=== PATIENT | male | born 1955 | race Two or more races ===

== ENCOUNTER → 2017-04-07 | Outpatient (REF) | payer OTHER ==
[2017-04-07 13:43] LABS: BASO % 0.4 % (0.0-1.0); EOS # 0.1 K/mm3 (0.0-0.50); EOS % 1.7 % (0.0-3.0); LARGE UNSTAINED CELL # 0.1 K/mm3 (0.0-0.4); LARGE UNSTAINED CELL % 1.3 % (0.0-4.0); LYMPH # 1.8 K/mm3 (1.5-4.5); LYMPH % 24.2 % (24.0-44.0); MEAN CORPUSCULAR HGB CONC 33.5 g/dl (32.0-36.5); MEAN CORPUSCULAR VOLUME 104.6 fl (80.0-96.0); MONO # 0.3 K/mm3 (0.0-0.8); MONO % 4.2 % (0.0-5.0); NEUTROPHILS % 68.2 % (36.0-66.0); PLATELET COUNT, AUTOMATED 242 k/mm3 (150-450); RED CELL DISTRIBUTION WIDTH 12.4 % (11.5-14.5); WHITE BLOOD COUNT 7.4 K/mm3 (4.0-10.0)
[2017-04-07 14:00] LABS: ALBUMIN 3.3 GM/DL (3.2-5.2); ALBUMIN/GLOBULIN RATIO 0.92 (1.00-1.93); ALKALINE PHOSPHATASE 129 U/L (45-117); ALT/SGPT 28 U/L (12-78); ANION GAP 6 MEQ/L (8-16); AST/SGOT 15 U/L (15-37); BILIRUBIN,TOTAL 0.3 MG/DL (0.2-1.0); BLOOD UREA NITROGEN 17 MG/DL (7-18); CALCIUM LEVEL 9.1 MG/DL (8.8-10.2); CARBON DIOXIDE LEVEL 29 MEQ/L (21-32); CHLORIDE LEVEL 106 MEQ/L (98-107); CHOLESTEROL LEVEL 182 MG/DL (<200); CREATININE FOR GFR 0.93 MG/DL (0.70-1.30); GLOMERULAR FILTRATION RATE > 60.0 (>49); GLUCOSE, FASTING 130 MG/DL (80-110); SODIUM LEVEL 141 MEQ/L (136-145); TOTAL PROTEIN 6.9 GM/DL (6.4-8.2); TRIGLYCERIDES LEVEL 61 MG/DL (<150)
[2017-04-07 14:03] LABS: POTASSIUM SERUM 5.2 MEQ/L (3.5-5.1)
== END ==
LOC: M SFHCADAM 08:24
PROVIDERS: ATTEND Family Medicine
DX: K21.9 Gastro-esophageal reflux disease without esophagitis (principal); E66.9 Obesity, unspecified; Z86.39 Personal history of other endocrine, nutritional and metabolic disease

== ENCOUNTER → 2017-05-01 | Outpatient (REF) | payer OTHER ==
[2017-05-01 12:39] LABS: FOLATE 6.8 NG/ML (>5.4)
[2017-05-01 12:41] LABS: FREE T4 1.07 NG/DL (0.76-1.46)
== END ==
LOC: M SFHCADAM 10:41
PROVIDERS: ATTEND Family Medicine
DX: D75.89 Other specified diseases of blood and blood-forming organs (principal); R73.9 Hyperglycemia, unspecified

== ENCOUNTER → 2017-06-01 | Outpatient (CLI) | payer OTHER ==
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
== END ==
LOC: M PAIN 11:20
PROVIDERS: ATTEND Nurse Practitioner Family
DX: G89.29 Other chronic pain (principal); M53.3 Sacrococcygeal disorders, not elsewhere classified; M51.27 Other intervertebral disc displacement, lumbosacral region; J44.9 Chronic obstructive pulmonary disease, unspecified; K21.9 Gastro-esophageal reflux disease without esophagitis; Z79.899 Other long term (current) drug therapy; Z87.891 Personal history of nicotine dependence

== ENCOUNTER → 2017-08-01 | Outpatient (CLI) | payer OTHER ==
[~2017-08-01] MED LIST: BUPIVACAINE HCL 0.25% 30 ML VIAL As Ordered ONE; ISOVUE-M 300 61% 15ML VIAL (Q9967) As Ordered ONE; LIDOCAINE 1% SDV INJ 30 ML VIAL As Ordered ONE; TRIAMCINOLONE ACETONIDE SUSP 40 MG/ML VIAL (J3301) As Ordered ONE
--- NOTE | 2017-08-02 01:31 | ECWPNPC ---
PATIENT NAME: KATHARINA VILLAVICENCIO : 1955 GENDER: MALE VISIT DATE: 08/01/2017 DISCHARGE DATE: 08/01/17 1137 VISIT LOCKED DATE TIME: PHYSICIAN: DAISY ESCOBAR RESOURCE: DAISY ESCOBAR REASON FOR APPOINTMENT 1. SIJ HISTORY OF PRESENT ILLNESS HISTORY OF PRESENT ILLNESS: PAIN THE PATIENT DESCRIBES THE PAIN... FALL RISK SCREENING: SCREENING :NO FALLS IN THE PAST YEAR CURRENT MEDICATIONS TAKING LIDOCAINE 5 % PATCH EXTERNALLY NEEDED, NOTES: > 2 MONTHS TAKING ALBUTEROL SULFATE 108 (90 BASE) MCG/ACT AEROSOL POWDER BREATH ACTIVATED 1 PUFF NEEDED INHALATION EVERY 4 HRS, NOTES: > 1 WEEK TAKING MAGNESIUM 500 MG TABLET 2 TABLET WITH A MEAL ORALLY ONCE A DAY, NOTES: 07/31/17799 TAKING OMEGA 3 1200 MG CAPSULE 1 CAPSULE ORALLY ONCE A DAY, NOTES: 07/31/27799 TAKING D3 ADULT 1000 UNIT TABLET CHEWABLE 1 TABLET ORALLY ONCE A DAY, NOTES: 07/31/27799 TAKING ADVAIR HFA 45-21 MCG/ACT AEROSOL 2 PUFFS INHALATION TWICE A DAY, NOTES: 08/01/27799 TAKING PROTONIX 40 MG TABLET DELAYED RELEASE 1 TABLET ORALLY ONCE A DAY, NOTES: 07/31/17799 TAKING LORATADINE 10 MG TABLET 1 TABLET ORALLY ONCE A DAY, NOTES: 07/31/17799 TAKING POTASSIUM 99 MG TABLET 1 TABLET ORALLY ONCE A DAY, NOTES: 07/31/17799 TAKING LECITHIN - GRANULES ORALLY , NOTES: 07/31/27799 TAKING CO Q 10 100 MG CAPSULE 1 CAPSULE WITH A MEAL ORALLY ONCE A DAY, NOTES: 07/31/17799 TAKING GABAPENTIN 400 MG CAPSULE 1 CAPSULE ORALLY THREE TIMES A DAY, NOTES: 08/01/17799 TAKING HYDROCODONE-ACETAMINOPHEN 5-325 MG TABLET 1 TABLET ORALLY 3 TIMES A DAY NEEDED, NOTES: 08/01/17799 MEDICATION LIST REVIEWED AND RECONCILED WITH THE PATIENT PAST MEDICAL HISTORY COPD GERD DEGENERATIVE DISC DISEASE AND SPINAL STENOSIS, S/P CHIROPRACTIC MANIPULATION, LUMBAR FACET BLOCKS, RADIOFREQUENCY ABLATION, EPIDURAL INJECTION ALLERGIES N.K.D.A. REVIEW OF SYSTEMS REVIEWED BY: PROVIDER: . CONSTITUTIONAL: ANY CHANGE IN YOUR MEDICAL CONDITION? NO . CHILLS NO . FEVER NO . INFECTION: DO YOU HAVE NEW INFECTIONS? NO . DO YOU HAVE HISTORY OF MRSA? NO . MUSCULOSKELETAL: ANY NEW PATTERNS OF PAIN OR NUMBNESS? NO . GASTROENTEROLOGY: ANY NEW CHANGE IN BOWEL CONTROL? NO . GENITOURINARY: ANY NEW CHANGE IN BLADDER CONTROL? NO . IS THERE A CHANCE YOU COULD BE ? NO . HEMATOLOGY/LYMPH: DO YOU TAKE ANY BLOOD THINNERS? (FOR EXAMPLE- COUMADIN, PLAVIX, AGGRENOX, PLATEL, PRADAXA, OR XARELTO) NO . WHEN WAS YOUR LAST DOSE? DATE: TIME: . NEUROLOGY: HAVE YOU FALLEN IN THE PAST 6 MONTHS? NO . ANY NEW EXTREMITY NUMBNESS OR WEAKNESS? NO . CARDIOLOGY: DO YOU HAVE A PACEMAKER OR DEFIBRILLATOR? NO . RESPIRATORY: HAVE YOU BEEN SICK IN THE PAST WEEK? NO . FEVER NO . FLU LIKE SYMPTOMS? NO . COUGH NO . INTEGUMENTARY: DO YOU HAVE ANY RASHES OR OPEN SORES? NO . ALLERGIC/IMMUNO: ARE YOU ALLERGIC TO SHELLFISH OR IV DYE? NO . ANY NEW ALLERGIES? NO . PSYCHIATRIC: DO YOU HAVE THOUGHTS OF HURTING YOURSELF OR SOMEONE ELSE? NO . ARE YOU ABUSED, NEGLECTED, OR IN AN UNSAFE ENVIRONMENT? NO . ENDOCRINOLOGY: ARE YOU DIABETIC? NO . OTHER: DO YOU NEED ANY PRESCRIPTIONS? YES . IF YES, PLEASE LIST: ____HYDROCODONE 5/325 . ANY NEW PROBLEMS WITH YOUR MEDICATIONS? NO . WHEN DID YOU LAST EAT? ____07/31/17 2100 . WHEN DID YOU LAST DRINK? ____08/01/17 0600 . WHAT DID YOU LAST DRINK? ____CLEAR TEA . NAME OF PERSON DRIVING YOU HOME? ____ANA MARIA VILLAVICENCIO . DO YOU HAVE ANY OTHER QUESTIONS OR CONCERNS NO . VITAL SIGNS WT 186 LBS, HT 5'7", BMI 29.13 INDEX, BP 97/54 MM HG, HR 74 /MIN, RR 18 /MIN, TEMP 98.5 F, OXYGEN SAT % 96%, NA INITIALS SC 10:04. ASSESSMENTS SACROILIITIS, NOT ELSEWHERE CLASSIFIED - M46.1 (PRIMARY) PROCEDURES PN SI PRE PROCEDURE DIAGNOSIS SACROILIITIS, SACROILIAC JOINT DYSFUNCTION POST PROCEDURE DIAGNOSIS SACROILIITIS, SACROILIAC JOINT DYSFUNCTION PROCEDURE RIGHT SACROILIAC JOINT BLOCK SURGEON DR. DAISY ESCOBAR INTERMEDIATE SCHOOL TEACHER NONE ANESTHESIA LOCAL PRE PROCEDURE NOTE PATIENT WITH HISTORY OF CHRONIC LOW BACK PAIN. I EVALUATED THE PATIENT AND REVIEWED THE CHART. I WENT OVER THE RISKS, ALTERNATIVES, AND BENEFITS ASSOCIATED WITH THIS PROCEDURE. THE PATIENT WOULD LIKE TO PROCEED AND GAVE CONSENT TO PERFORM THE PROCEDURE. THE PATIENT DENIES UNEXPLAINABLE WEIGHT LOSS, FEVER, CHILLS, OR NEW CHANGES IN URINARY OR BOWEL CONTROL DESCRIPTION OF PROCEDURE THE PATIENT WAS BROUGHT TO THE PROCEDURE ROOM AND PLACED IN THE PRONE POSITION. THE LUMBOSACRAL AREA WAS CLEANED WITH CHLORAPREP SOLUTION AND DRAPED ASEPTICALLY. THE PROCEDURE WAS DONE UNDER STERILE CONDITIONS. I CHECKED LATERALITY AND THE LEVEL WHERE THE PROCEDURE WAS GOING TO BE PERFORMED WITH THE PATIENT AND THE SUPPORTING STAFF AT THE MOMENT OF THE TIME OUT IN THE PROCEDURE ROOM. UNDER FLUOROSCOPIC GUIDANCE, TARGET POINT WAS SELECTED AT THE LOWER BORDER OF THE RIGHT SACROILIAC JOINT. TARGET POINT WAS SELECTED AFTER MEDIAL ROTATION AND TILT OF THE MAGNIFIER OF THE C-ARM. LIDOCAINE WAS USED TO NUMB THE SKIN AND SUBCUTANEOUS TISSUE BELOW IT. A SPINAL NEEDLE, 22-GAUGE, WAS ADVANCED UNDER FLUOROSCOPIC GUIDANCE AND FOLLOWING PATIENT FEEDBACK UNTIL THE TARGET AREA WAS TOUCHED. THE POSITION OF THE NEEDLE WAS VERIFIED WITH AP AND LATERAL VIEWS. AFTER PROPER POSITION OF THE NEEDLE WAS ACHIEVED, ISOVUE M DYE 30%, 0.25 ML, WAS INJECTED SHOWING SPREAD OF THE DYE. THEN, A SOLUTION OF 20 MG OF KENALOG WAS INJECTED IN RIGHT JOINT WITH 3 ML OF BUPIVACAINE 0.125%. THERE WAS NO EVIDENCE OF BLOOD, PARESTHESIA OR CEREBROSPINAL FLUID DURING THE PROCEDURE. THE PATIENT WAS SENT TO THE RECOVERY ROOM. THE PATIENT WAS MOVING THE EXTREMITIES AND DOING WELL. THERE WAS NO COMPLICATION DURING THE PROCEDURE. FLUOROSCOPY TIME WAS 22 SECONDS POST PROCEDURE NOTE THE PATIENT WILL BE SEEN IN A FOLLOW UP IN THE NEXT FEW WEEKS. INSTRUCTIONS WERE GIVEN, QUESTIONS WERE ANSWERED, AND THE PATIENT EXPRESSED UNDERSTANDING AND AGREED WITH THE PLAN. I, JOCE GASTON, DOCUMENTED THE ABOVE INFORMATION ACTING A SCRIBE FOR DR. ESCOBAR. I HAVE REVIEWED THE ABOVE DOCUMENT, WRITTEN BY JOCE STRINGER AND I VERIFY THAT IT IS [facility]NO[facility] FLUORO GUIDANCE (PAIN)[id number] PROCEDURE CODES 27182 INJECT SACROILIAC JOINT, MODIFIERS: RT 6045F RADXPS IN END [id number] PXD DISPOSITION & COMMUNICATION FOLLOW UP 3 WEEKS ELECTRONICALLY SIGNED BY DAISY ESCOBAR MD ON 08/01/2017 AT 10:01 PM EDT DISCLAIMER : THIS IS A VISIT SUMMARY EXTRACTED FROM THE [facility] CHART. IT IS NOT A COPY OF THE [facility] PROGRESS NOTE. BRANDON
--- NOTE | 2017-08-02 17:59 | REP ---
RIGHT SI JOINT INJECTION: All imaging was reviewed with Dr. Cota prior to dictation. The portable C-ARM was provided in the OR for Dr. Abdul for fluoroscopic guidance. 3 intraoperative fluoroscopic spot films were obtained using last image hold technology for needle placement verification for right SI joint injection. The films are on the PACs system and are available for review. 22 seconds of fluoroscopy time were utilized for this procedure. Reviewed by CRISTIAN Dimas 08/03/2017 08:22 AEdited and Signed by Milan Cota MD 08/03/2017 07:59 P
== END ==
LOC: M PAIN 10:00
PROVIDERS: ATTEND Anesthesiology
DX: G89.29 Other chronic pain (principal); M46.1 Sacroiliitis, not elsewhere classified; M54.5 Low back pain; J44.9 Chronic obstructive pulmonary disease, unspecified; Z79.891 Long term (current) use of opiate analgesic; Z79.899 Other long term (current) drug therapy; Z86.39 Personal history of other endocrine, nutritional and metabolic disease
CPT/HCPCS: 27096; J3301; Q9967

== ENCOUNTER → 2017-08-15 | Outpatient (CLI) | payer OTHER ==
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
== END ==
LOC: M PAIN 09:15
PROVIDERS: ATTEND Nurse Practitioner Family
DX: G89.29 Other chronic pain (principal); M47.816 Spondylosis without myelopathy or radiculopathy, lumbar region; M48.061 Spinal stenosis, lumbar region without neurogenic claudication; J44.9 Chronic obstructive pulmonary disease, unspecified; K21.9 Gastro-esophageal reflux disease without esophagitis; E66.9 Obesity, unspecified; Z68.28 Body mass index [BMI] 28.0-28.9, adult; Z79.899 Other long term (current) drug therapy; Z87.891 Personal history of nicotine dependence

== ENCOUNTER → 2017-09-06 | Outpatient (CLI) | payer OTHER ==
--- NOTE | 2017-09-24 23:55 | ECWPNPC ---
PATIENT NAME: KATHARINA VILLAVICENCIO : 1955 GENDER: MALE VISIT DATE: 09/06/2017 DISCHARGE DATE: 09/06/17 1625 VISIT LOCKED DATE TIME: PHYSICIAN: DAISY ESCOBAR RESOURCE: DAISY ESCOBAR REASON FOR APPOINTMENT 1. LOW BACK PAIN HISTORY OF PRESENT ILLNESS GENERAL: 62 YEAR OLD MALE PATIENT WITH HISTORY OF CHRONIC LOW BACK PAIN. PATIENT DESCRIBES THE PAIN ACHING, SHARP, STABBING, SHOOTING AND HAVING IT ALL THE TIME WITH A PAIN SCORE OF 4-5/10. PATIENT RECEIVED A LUMBAR FACET BLOCK DIAGNOSTIC #1 ON 09/04/17 AND STATES HE DID NOT GET GOOD RELIEF FROM THE INJECTION. PATIENT IS CURRENTLY USING LIDOCAINE, GABAPENTIN, AND HYDROCODONE FOR PAIN MANAGEMENT. MR. VILLAVICENCIO STATES THAT THE MEDICATION TAKES THE EDGE OFF. PATIENT STATES THAT ANY TYPE OF ACTIVITY INCREASES IN THE PAIN IN HIS LOWER BACK AND LEG INCLUDING WALKING, STANDING, AND SITTING. PATIENT REPORTS ONLY SLEEPING FOR A FEW HOURS AT ONE TIME. PATIENT DENIES UNEXPLAINABLE WEIGHT LOSS, FEVER, CHILLS, NEW CHANGES ON HIS URINARY OR BOWEL CONTROL. HISTORY OF PRESENT ILLNESS: PAIN THE PATIENT DESCRIBES THE PAIN... FALL RISK SCREENING: SCREENING :NO FALLS IN THE PAST YEAR CURRENT MEDICATIONS TAKING LIDOCAINE 5 % PATCH EXTERNALLY NEEDED, NOTES: NOT IN A WHILE TAKING ALBUTEROL SULFATE 108 (90 BASE) MCG/ACT AEROSOL POWDER BREATH ACTIVATED 1 PUFF NEEDED INHALATION EVERY 4 HRS TAKING MAGNESIUM 500 MG TABLET 2 TABLET WITH A MEAL ORALLY ONCE A DAY TAKING OMEGA 3 1200 MG CAPSULE 1 CAPSULE ORALLY ONCE A DAY TAKING D3 ADULT 1000 UNIT TABLET CHEWABLE 1 TABLET ORALLY EVERY OTHER DAY TAKING ADVAIR HFA 45-21 MCG/ACT AEROSOL 2 PUFFS INHALATION TWICE A DAY TAKING PROTONIX 40 MG TABLET DELAYED RELEASE 1 TABLET ORALLY ONCE A DAY TAKING LORATADINE 10 MG TABLET 1 TABLET ORALLY ONCE A DAY TAKING POTASSIUM 99 MG TABLET 1 TABLET ORALLY ONCE A DAY TAKING LECITHIN - GRANULES ORALLY DAILY NEEDED TAKING CO Q 10 100 MG CAPSULE 1 CAPSULE WITH A MEAL ORALLY ONCE A DAY TAKING GABAPENTIN 400 MG CAPSULE 1 CAPSULE ORALLY THREE TIMES A DAY TAKING HYDROCODONE-ACETAMINOPHEN 5-325 MG TABLET 1 TABLET ORALLY 3 TIMES A DAY NEEDED PAST MEDICAL HISTORY COPD GERD DEGENERATIVE DISC DISEASE AND SPINAL STENOSIS, S/P CHIROPRACTIC MANIPULATION, LUMBAR FACET BLOCKS, RADIOFREQUENCY ABLATION, EPIDURAL INJECTION ALLERGIES NO[ALLERGIES VERIFIED] SURGICAL HISTORY HERNIA CYST REMOVED RIGHT SHOULDER HEMORRHOIDS FAMILY HISTORY FATHER: 60 YRS, DIAGNOSED WITH CANCER MOTHER: 70 YRS, DIAGNOSED WITH DIABETES 6 BROTHER(S) . 2 SON(S) . SOCIAL HISTORY GENERAL: TOBACCO USE ARE YOU A:FORMER SMOKER HOW LONG HAS IT BEEN SINCE YOU LAST SMOKED?> 10 YEARS ALCOHOL SCREENING DID YOU HAVE A DRINK CONTAINING ALCOHOL IN THE PAST YEAR?YES HOW MANY DRINKS DID YOU HAVE ON A TYPICAL DAY WHEN YOU WERE DRINKING IN THE PAST YEAR?1 OR 2 (0 POINTS) HOW OFTEN DID YOU HAVE A DRINK CONTAINING ALCOHOL IN THE PAST YEAR?MONTHLY OR LESS (1 POINT) POINTS1 INTERPRETATIONNEGATIVE RECREATIONAL DRUG USE DRUG USE?NO CAFFEINE CAFFEINE USE?NO OCCUPATION: DISABLED, SELF-IMPLOYED ([employer], [employer], [employer]). DIET: REGULAR. MARITAL STATUS: . OTHERS AT HOME: . PETS: 3 CHIHUAHUAS, PAIZ PARROT. ISLAM NO YAZIDISM BELIEFS THAT WOULD IMPACT HEALTH CARE. LANGUAGE LANGUAGES SPOKEN:IRAQI LEARNING BARRIERS / SPECIAL NEEDS CHANGE FROM LAST VISIT?NO BARRIERS TO LEARNING?NO HEARING IMPAIRED?YES BILATERAL :HEARING AIDES VISION IMPAIRED?YES :CORRECTIVE LENSES COGNITIVELY IMPAIRED?NO READINESS TO LEARN?YES LEARNING PREFERENCES?NO LEARNING CAPABILITIES PRESENT?YES EMOTIONAL BARRIERS?NO SPECIAL DEVICES?YES :CANE PAVING RAMMER NEEDED?NO PAIN CLINIC PFS, CLERGY, PUBLIC HEALTH REFERRALS PFS REFERRAL NEEDED?NO CLERGY REFERRAL NEEDED?NO PUBLIC HEALTH REFERRAL NEEDED?NO HAS THE PATIENT BEEN EDUCATED REGARDING HIS/HER PLAN OF CARE?YES HAS THE PATIENT BEEN EDUCATED REGARDING PAIN, THE RISK FOR PAIN, THE IMPORTANCE OF EFFECTIVE PAIN MANAGEMENT, AND THE PAIN ASSESSMENT PROCESS?YES ADVANCE DIRECTIVES HEALTH CARE PROXY?NO WOULD YOU LIKE MORE INFORMATION?NO DO YOU HAVE A DNR?NO WOULD YOU LIKE MORE INFORMATION?NO LIVING WILL?NO WOULD YOU LIKE MORE INFORMATION?NO POWER OF COMMERCIAL ILLUSTRATOR?NO WOULD YOU LIKE MORE INFORMATION?NO REVIEW OF SYSTEMS REVIEWED BY: PROVIDER: . CONSTITUTIONAL: ANY CHANGE IN YOUR MEDICAL CONDITION? NO . CHILLS NO . FEVER NO . INFECTION: DO YOU HAVE NEW INFECTIONS? NO . DO YOU HAVE HISTORY OF MRSA? NO . MUSCULOSKELETAL: ANY NEW PATTERNS OF PAIN OR NUMBNESS? YES,RIGHT LEG AND LEFT LOW BACK . GASTROENTEROLOGY: ANY NEW CHANGE IN BOWEL CONTROL? NO . GENITOURINARY: ANY NEW CHANGE IN BLADDER CONTROL? NO . IS THERE A CHANCE YOU COULD BE ? NO . HEMATOLOGY/LYMPH: DO YOU TAKE ANY BLOOD THINNERS? (FOR EXAMPLE- COUMADIN, PLAVIX, AGGRENOX, PLATEL, PRADAXA, OR XARELTO) NO . WHEN WAS YOUR LAST DOSE? DATE: TIME: . NEUROLOGY: HAVE YOU FALLEN IN THE PAST 6 MONTHS? NO . ANY NEW EXTREMITY NUMBNESS OR WEAKNESS? NO . CARDIOLOGY: DO YOU HAVE A PACEMAKER OR DEFIBRILLATOR? NO . RESPIRATORY: HAVE YOU BEEN SICK IN THE PAST WEEK? NO . FEVER NO . FLU LIKE SYMPTOMS? NO . COUGH NO . INTEGUMENTARY: DO YOU HAVE ANY RASHES OR OPEN SORES? NO . ALLERGIC/IMMUNO: ARE YOU ALLERGIC TO SHELLFISH OR IV DYE? NO . ANY NEW ALLERGIES? NO . PSYCHIATRIC: DO YOU HAVE THOUGHTS OF HURTING YOURSELF OR SOMEONE ELSE? NO . ARE YOU ABUSED, NEGLECTED, OR IN AN UNSAFE ENVIRONMENT? NO . ENDOCRINOLOGY: ARE YOU DIABETIC? NO . OTHER: DO YOU NEED ANY PRESCRIPTIONS? YES . IF YES, PLEASE LIST: GABAPENTIN, HYDROCODONE . ANY NEW PROBLEMS WITH YOUR MEDICATIONS? NO . WHEN DID YOU LAST EAT? ____ . WHEN DID YOU LAST DRINK? ____ . WHAT DID YOU LAST DRINK? ____ . NAME OF PERSON DRIVING YOU HOME? ____ . DO YOU HAVE ANY OTHER QUESTIONS OR CONCERNS NO . VITAL SIGNS WT 183.5 LBS, HT 5'7", BMI 28.74 INDEX, BP 150/94 MM HG, HR 90 /MIN, RR 18 /MIN, TEMP 98.1 F, OXYGEN SAT % 96%, NA INITIALS TL 1539, REVIEWED BY: NL. EXAMINATION GENERAL: PATIENT IS ALERT O X 3 AND COOPERATIVE. TENDERNESS IN THE LOWER BACK AND PARASPINAL MUSCLE GROUP. PATIENT LIMPS FROM THE RIGHT LEG. USES CANE TO AMBULATE. STRAIGHT LEG POSITIVE FOR PAIN AT RIGHT LEG AT 30 DEGREES. MRI OF THE LUMBAR SPINE DONE ON 12/18/2015 SHOWS CANAL STENOSIS WELL MULTIPLE DISC BULGES. ASSESSMENTS INTERVERTEBRAL DISC DISORDER WITH RADICULOPATHY OF LUMBAR REGION - M51.16 (PRIMARY) SPONDYLOSIS OF LUMBAR REGION WITHOUT MYELOPATHY OR RADICULOPATHY - M47.816 SPONDYLOSIS OF LUMBOSACRAL REGION WITHOUT MYELOPATHY OR RADICULOPATHY - M47.817 TREATMENT INTERVERTEBRAL DISC DISORDER WITH RADICULOPATHY OF LUMBAR REGION NOTES: WE DISCUSSED SEVERAL ISSUES WITH MR. VILLAVICENCIO'S PAIN MANAGEMENT CASE. AT THIS TIME THE PATIENT WILL CONTINUE WITH THE SAME MEDICATION BEFORE AND WILL START USING TIZANIDINE AT NIGHT TO AID IN PAIN RELIEF FROM THE MUSCLE SPASMS. PATIENT WAS ADVISED TO STOP THE MEDICATION IF HE HAS ANY ADVERSE SIDE EFFECTS FROM THE MEDICATION. WE DISCUSSED SEVERAL INTERVENTIONS THAT MAY AID THE PATIENT IN PAIN RELIEF INCLUDING A LUMBAR EPIDURAL DUE TO THE RADICULAR PAIN. WE DISCUSSED THE RISKS, BENEFITS, AND ALTERNATIVES OF THE INJECTION AND THE PATIENT WOULD LIKE TO PROCEED. INSTRUCTIONS WERE GIVEN, QUESTIONS WERE ANSWERED, PATIENT REPORTS UNDERSTANDING AND AGREES WITH THE PLAN. I, JOCE GASTON, DOCUMENTED THE ABOVE INFORMATION ACTING A SCRIBE FOR DR. ESCOBAR. I HAVE REVIEWED THE ABOVE DOCUMENT, WRITTEN BY JOCE STRINGER AND I VERIFY THAT IT IS ACCURATE. OTHERS START TIZANIDINE HCL TABLET, 2 MG, 1 TABLET NEEDED, ORALLY, BEFORE BEDTIME MAY REPEAT IN 5 HRS MDD2, 30 DAY(S), 50, REFILLS 1 PROCEDURE CODES FA211 ESTABILISHED PATIENT [facility] CHARGE G8427 DOC MEDS VERIFIED W/PT OR RE G8730 PAIN ASSESS POS TOOL F/U PLAN DOC DISPOSITION & COMMUNICATION FOLLOW UP LESI AFTER APPROVAL ELECTRONICALLY SIGNED BY DAISY ESCOBAR MD ON 09/24/2017 AT 08:48 PM EST DISCLAIMER : THIS IS A VISIT SUMMARY EXTRACTED FROM THE [employer] CHART. IT IS NOT A COPY OF THE [employer] PROGRESS NOTE. MTDD
== END ==
LOC: M PAIN 15:45
PROVIDERS: ATTEND Anesthesiology
DX: G89.21 Chronic pain due to trauma (principal); M51.16 Intervertebral disc disorders with radiculopathy, lumbar region; M47.816 Spondylosis without myelopathy or radiculopathy, lumbar region; M47.817 Spondylosis without myelopathy or radiculopathy, lumbosacral region; J44.9 Chronic obstructive pulmonary disease, unspecified; K21.9 Gastro-esophageal reflux disease without esophagitis; Z79.899 Other long term (current) drug therapy; Z87.891 Personal history of nicotine dependence

== ENCOUNTER → 2017-09-18 | Outpatient (CLI) | payer OTHER ==
[~2017-09-18] MED LIST changes: -BUPIVACAINE HCL 0.25% 30 ML VIAL As Ordered ONE; -TRIAMCINOLONE ACETONIDE SUSP 40 MG/ML VIAL (J3301) As Ordered ONE; +diazePAM 5 MG TAB As Ordered ONE; +methylPREDNISolone SUSP 40 MG/ML (DEPO-medrol) VIAL (J1030) As Ordered ONE; +oxyCODONE 5MG TAB As Ordered ONE
--- NOTE | 2017-09-18 17:37 | REP ---
C-Arm views lumbar spine: Clinical history: Pain. Three C-Arm views lumbar spine region performed during injection by Dr. Mcnair. Needle is seen in the L2-3 region. A tiny amount of contrast is injected. 19 seconds of fluoroscopy time utilized. Signed by Milan Cota MD 09/19/2017 01:22 P
--- NOTE | 2017-10-03 00:43 | ECWPNPC ---
PATIENT NAME: KATHARINA VILLAVICENCIO : 1955 GENDER: MALE VISIT DATE: 09/18/2017 DISCHARGE DATE: 09/18/17 1343 VISIT LOCKED DATE TIME: PHYSICIAN: DAISY ESCOBAR RESOURCE: DAISY ESCOBAR REASON FOR APPOINTMENT 1. LESI HISTORY OF PRESENT ILLNESS HISTORY OF PRESENT ILLNESS: PAIN THE PATIENT DESCRIBES THE PAIN... FALL RISK SCREENING: SCREENING :NO FALLS IN THE PAST YEAR CURRENT MEDICATIONS TAKING LIDOCAINE 5 % PATCH EXTERNALLY NEEDED, NOTES: NOT IN A WHILE TAKING ALBUTEROL SULFATE 108 (90 BASE) MCG/ACT AEROSOL POWDER BREATH ACTIVATED 1 PUFF NEEDED INHALATION EVERY 4 HRS, NOTES: > 1 WEEK TAKING MAGNESIUM 500 MG TABLET 2 TABLET WITH A MEAL ORALLY ONCE A DAY, NOTES: 09/17/17799 TAKING OMEGA 3 1200 MG CAPSULE 1 CAPSULE ORALLY ONCE A DAY, NOTES: 09/17/17799 TAKING D3 ADULT 1000 UNIT TABLET CHEWABLE 1 TABLET ORALLY EVERY OTHER DAY, NOTES: 09/17/17799 TAKING ADVAIR HFA 45-21 MCG/ACT AEROSOL 2 PUFFS INHALATION TWICE A DAY, NOTES: 09/18/17799 TAKING PROTONIX 40 MG TABLET DELAYED RELEASE 1 TABLET ORALLY ONCE A DAY, NOTES: 09/17/17799 TAKING LORATADINE 10 MG TABLET 1 TABLET ORALLY ONCE A DAY, NOTES: > 2 WEEKS TAKING POTASSIUM 99 MG TABLET 1 TABLET ORALLY ONCE A DAY, NOTES: 09/17/17799 TAKING LECITHIN - GRANULES ORALLY DAILY NEEDED, NOTES: 09/17/17799 TAKING CO Q 10 100 MG CAPSULE 1 CAPSULE WITH A MEAL ORALLY ONCE A DAY, NOTES: 09/17/17799 TAKING GABAPENTIN 400 MG CAPSULE 1 CAPSULE ORALLY THREE TIMES A DAY, NOTES: 09/18/17799 TAKING HYDROCODONE-ACETAMINOPHEN 5-325 MG TABLET 1 TABLET ORALLY 3 TIMES A DAY NEEDED, NOTES: 09/18/17 08 TAKING TIZANIDINE HCL 2 MG TABLET 1 TABLET NEEDED ORALLY BEFORE BEDTIME MAY REPEAT IN 5 HRS MDD2, NOTES: 09/17/17 2200 TAKING VITAMIN B COMPLEX - CAPSULE ORALLY MEDICATION LIST REVIEWED AND RECONCILED WITH THE PATIENT PAST MEDICAL HISTORY COPD GERD DEGENERATIVE DISC DISEASE AND SPINAL STENOSIS, S/P CHIROPRACTIC MANIPULATION, LUMBAR FACET BLOCKS, RADIOFREQUENCY ABLATION, EPIDURAL INJECTION ALLERGIES N.K.D.A. REVIEW OF SYSTEMS REVIEWED BY: PROVIDER: . CONSTITUTIONAL: ANY CHANGE IN YOUR MEDICAL CONDITION? NO . CHILLS NO . FEVER NO . INFECTION: DO YOU HAVE NEW INFECTIONS? NO . DO YOU HAVE HISTORY OF MRSA? NO . MUSCULOSKELETAL: ANY NEW PATTERNS OF PAIN OR NUMBNESS? NO . GASTROENTEROLOGY: ANY NEW CHANGE IN BOWEL CONTROL? NO . GENITOURINARY: ANY NEW CHANGE IN BLADDER CONTROL? NO . IS THERE A CHANCE YOU COULD BE ? NO . HEMATOLOGY/LYMPH: DO YOU TAKE ANY BLOOD THINNERS? (FOR EXAMPLE- COUMADIN, PLAVIX, AGGRENOX, PLATEL, PRADAXA, OR XARELTO) NO . WHEN WAS YOUR LAST DOSE? DATE: TIME: . NEUROLOGY: HAVE YOU FALLEN IN THE PAST 6 MONTHS? NO . ANY NEW EXTREMITY NUMBNESS OR WEAKNESS? NO . CARDIOLOGY: DO YOU HAVE A PACEMAKER OR DEFIBRILLATOR? NO . RESPIRATORY: HAVE YOU BEEN SICK IN THE PAST WEEK? NO . FEVER NO . FLU LIKE SYMPTOMS? NO . COUGH NO . INTEGUMENTARY: DO YOU HAVE ANY RASHES OR OPEN SORES? NO . ALLERGIC/IMMUNO: ARE YOU ALLERGIC TO SHELLFISH OR IV DYE? NO . ANY NEW ALLERGIES? NO . PSYCHIATRIC: DO YOU HAVE THOUGHTS OF HURTING YOURSELF OR SOMEONE ELSE? NO . ARE YOU ABUSED, NEGLECTED, OR IN AN UNSAFE ENVIRONMENT? NO . ENDOCRINOLOGY: ARE YOU DIABETIC? NO . OTHER: DO YOU NEED ANY PRESCRIPTIONS? YES . IF YES, PLEASE LIST: HYDROCODONE 5/325, GABAPENTIN 400 MG - 3 MONTH SUPPLY IF POSSIBLE . ANY NEW PROBLEMS WITH YOUR MEDICATIONS? NO . WHEN DID YOU LAST EAT? ____ . WHEN DID YOU LAST DRINK? ____ . WHAT DID YOU LAST DRINK? ____ . NAME OF PERSON DRIVING YOU HOME? ____ . DO YOU HAVE ANY OTHER QUESTIONS OR CONCERNS NO . VITAL SIGNS WT 184.8 LBS, HT 5'7", BMI 28.94 INDEX, BP 108/66 MM HG, HR 71 /MIN, RR 18 /MIN, TEMP 98.8 F, OXYGEN SAT % 99%, NA INITIALS SC 11:42, REVIEWED BY: LS. ASSESSMENTS INTERVERTEBRAL DISC DISORDER WITH RADICULOPATHY OF LUMBAR REGION - M51.16 (PRIMARY) TREATMENT OTHERS REFILL TIZANIDINE HCL TABLET, 4 MG, 1 TABLET NEEDED, ORALLY, BEFORE BEDTIME MAY REPEAT IN 5 HRS MDD2, 30 DAY(S), 50, REFILLS 1, NOTES: 09/17/17 2200 PROCEDURES PRE PROCEDURE DIAGNOSIS LUMBAR DISC DISORDER WITH RADICULOPATHY POST PROCEDURE DIAGNOSIS LUMBAR DISC DISORDER WITH RADICULOPATHY PROCEDURE LUMBAR EPIDURAL STEROID INJECTION UNDER FLUOROSCOPIC GUIDANCE SURGEON DR. DAISY ESCOBAR NETWORK DESIGNER NONE ANESTHESIA LOCAL PRE PROCEDURE NOTE THE PATIENT HAS A HISTORY OF CHRONIC LOW BACK PAIN. I EVALUATE THE PATIENT AND REVIEWED THE CHART. I WENT OVER THE RISKS, ALTERNATIVES, AND BENEFITS ASSOCIATED WITH THIS PROCEDURE. THE PATIENT WOULD LIKE TO PROCEED AND GIVE CONSENT TO PERFORMED THE PROCEDURE. THE PATIENT DENIES UNEXPLAINABLE WEIGHT LOSS, FEVER, CHILLS, OR NEW CHANGES IN URINARY OR BOWEL CONTROL. DESCRIPTION OF PROCEDURE THE PATIENT WAS BROUGHT TO THE PROCEDURE ROOM AND PLACED IN THE PRONE POSITION. THE LUMBOSACRAL AREA WAS CLEANED WITH BETADINE SOLUTION AND DRAPED ASEPTICALLY. THE PROCEDURE WAS DONE UNDER STERILE CONDITIONS. I CHECKED LATERALITY AND THE LEVEL WHERE THE PROCEDURE WAS GOING TO BE PERFORMED WITH THE PATIENT AND THE SUPPORTING STAFF AT THE MOMENT OF THE TIME OUT IN THE PROCEDURE ROOM. UNDER FLUOROSCOPIC GUIDANCE, THE TARGET POINT WAS SELECTED AT THE INTERLAMINAR LEVEL OF L2-L3. LIDOCAINE WAS USED TO NUMB THE SKIN AND THE SUBCUTANEOUS TISSUE BELOW IT. EPIDURAL TUOHY NEEDLE, 17-GAUGE, WAS ADVANCED UNDER FLUOROSCOPIC GUIDANCE AND FOLLOWING PATIENT FEEDBACK UNTIL THE EPIDURAL SPACE WAS REACHED, 7 CM DEEP INTO THE SKIN BY THE LOSS OF RESISTANCE TECHNIQUE. ISOVUE M DYE 30%, 0.25 ML, WAS INJECTED SHOWING ADEQUATE SPREAD OF THE DYE. THEN, A SOLUTION OF 3 ML OF NORMAL SALINE WITH DEPO-MEDROL 60 MG WAS INJECTED SLOWLY FOLLOWING PATIENT FEEDBACK. THERE WAS NO EVIDENCE OF BLOOD, PARESTHESIA OR CEREBROSPINAL FLUID DURING THE PROCEDURE. THE PATIENT WAS SENT TO THE RECOVERY ROOM. THE PATIENT WAS MOVING THE EXTREMITIES AND DOING WELL. THERE WAS NO COMPLICATION DURING THE PROCEDURE. FLUOROSCOPY TIME WAS 19 SECONDS. POST PROCEDURE NOTE THE PATIENT WILL BE SEEN IN A FOLLOW UP IN THE NEXT FEW WEEKS. INSTRUCTIONS WERE GIVEN, QUESTIONS WERE ANSWERED, AND THE PATIENT EXPRESSED UNDERSTANDING AND AGREES WITH THE PLAN. I, JOCE GASTON, DOCUMENTED THE ABOVE INFORMATION ACTING A SCRIBE FOR DR. ESCOBAR. I HAVE REVIEWED THE ABOVE DOCUMENT, WRITTEN BY JOCE STRINGER AND I VERIFY THAT IT IS ACCURATE DIAGNOSTIC IMAGING [facility] FLUORO GUIDE SPINE INJECTION (PAIN)[id number] PROCEDURE CODES 52770 LUMBAR/SACRAL W/ IMAGING 6045F RADXPS IN END [id number] PXD DISPOSITION & COMMUNICATION FOLLOW UP 2 WEEKS ELECTRONICALLY SIGNED BY DAISY ESCOBAR MD ON 10/02/2017 AT 11:06 AM EST DISCLAIMER : THIS IS A VISIT SUMMARY EXTRACTED FROM THE [employer] CHART. IT IS NOT A COPY OF THE [employer] PROGRESS NOTE. MTDD
== END ==
LOC: M PAIN 11:15
PROVIDERS: ATTEND Anesthesiology
DX: G89.29 Other chronic pain (principal); M51.16 Intervertebral disc disorders with radiculopathy, lumbar region; J44.9 Chronic obstructive pulmonary disease, unspecified; K21.9 Gastro-esophageal reflux disease without esophagitis; Z79.891 Long term (current) use of opiate analgesic; Z79.899 Other long term (current) drug therapy
CPT/HCPCS: 62323; J1030; Q9967

== ENCOUNTER → 2017-10-17 | Outpatient (CLI) | payer OTHER | LOC: M PAIN 09:30 | DX: M47.816 Spondylosis without myelopathy or radiculopathy, lumbar region (principal); M48.061 Spinal stenosis, lumbar region without neurogenic claudication; J44.9 Chronic obstructive pulmonary disease, unspecified; K21.9 Gastro-esophageal reflux disease without esophagitis; Z79.891 Long term (current) use of opiate analgesic; Z79.899 Other long term (current) drug therapy; Z87.891 Personal history of nicotine dependence | CPT/HCPCS: G0463 ==

== ENCOUNTER → 2017-11-20 | Outpatient (CLI) | payer OTHER ==
[~2017-11-20] MED LIST changes: +ISOVUE-M 300 61% 15ML VIAL (Q9967) As Ordered; -ISOVUE-M 300 61% 15ML VIAL (Q9967) As Ordered ONE; +LIDOCAINE 1% SDV INJ 30 ML VIAL As Ordered; -LIDOCAINE 1% SDV INJ 30 ML VIAL As Ordered ONE; +diazePAM 5 MG TAB As Ordered; -diazePAM 5 MG TAB As Ordered ONE; +methylPREDNISolone SUSP 40 MG/ML (DEPO-medrol) VIAL (J1030) As Ordered; -methylPREDNISolone SUSP 40 MG/ML (DEPO-medrol) VIAL (J1030) As Ordered ONE; +oxyCODONE 5MG TAB As Ordered; -oxyCODONE 5MG TAB As Ordered ONE
== END ==
LOC: M PAIN 08:30
DX: G89.29 Other chronic pain (principal); M51.16 Intervertebral disc disorders with radiculopathy, lumbar region; K21.9 Gastro-esophageal reflux disease without esophagitis; J44.9 Chronic obstructive pulmonary disease, unspecified; Z79.899 Other long term (current) drug therapy; Z87.891 Personal history of nicotine dependence
CPT/HCPCS: J1030

== ENCOUNTER → 2017-12-05 | Outpatient (CLI) | payer OTHER | END | disposition home or self-care (01) | LOC: M PAIN 08:45 | DX: G89.29 Other chronic pain (principal); M47.816 Spondylosis without myelopathy or radiculopathy, lumbar region; M54.17 Radiculopathy, lumbosacral region; J44.9 Chronic obstructive pulmonary disease, unspecified; K21.9 Gastro-esophageal reflux disease without esophagitis; R73.03 Prediabetes; M51.9 Unspecified thoracic, thoracolumbar and lumbosacral intervertebral disc disorder; Z79.899 Other long term (current) drug therapy; Z79.51 Long term (current) use of inhaled steroids; Z87.891 Personal history of nicotine dependence; Z97.4 Presence of external hearing-aid | CPT/HCPCS: G0463 ==

== ENCOUNTER → 2018-01-04 | Outpatient (CLI) | payer OTHER | END | disposition home or self-care (01) | LOC: M PAIN 09:45 | DX: G89.29 Other chronic pain (principal); M51.17 Intervertebral disc disorders with radiculopathy, lumbosacral region; J44.9 Chronic obstructive pulmonary disease, unspecified; K21.9 Gastro-esophageal reflux disease without esophagitis; R73.03 Prediabetes; Z79.899 Other long term (current) drug therapy; Z87.891 Personal history of nicotine dependence | CPT/HCPCS: J1030 ==

== ENCOUNTER → 2018-03-02 | Outpatient (CLI) | payer OTHER | END | disposition home or self-care (01) | LOC: M PAIN 09:00 | DX: G89.29 Other chronic pain (principal); M54.17 Radiculopathy, lumbosacral region; M47.816 Spondylosis without myelopathy or radiculopathy, lumbar region; M51.26 Other intervertebral disc displacement, lumbar region; J44.9 Chronic obstructive pulmonary disease, unspecified; K21.9 Gastro-esophageal reflux disease without esophagitis; E11.9 Type 2 diabetes mellitus without complications; Z79.899 Other long term (current) drug therapy; Z79.51 Long term (current) use of inhaled steroids; Z87.891 Personal history of nicotine dependence | CPT/HCPCS: G0463 ==

== ENCOUNTER → 2018-04-13 | Outpatient (CLI) | payer OTHER | LOC: M PAIN 09:45 | DX: M54.17 Radiculopathy, lumbosacral region (principal); M47.816 Spondylosis without myelopathy or radiculopathy, lumbar region; M51.26 Other intervertebral disc displacement, lumbar region; G89.29 Other chronic pain; J44.9 Chronic obstructive pulmonary disease, unspecified; K21.9 Gastro-esophageal reflux disease without esophagitis; R73.09 Other abnormal glucose; Z79.891 Long term (current) use of opiate analgesic; Z79.899 Other long term (current) drug therapy; Z87.891 Personal history of nicotine dependence | CPT/HCPCS: G0463 ==

== ENCOUNTER → 2018-06-13 | Outpatient (CLI) | payer OTHER | LOC: M PAIN 09:00 | DX: M54.17 Radiculopathy, lumbosacral region (principal); M47.816 Spondylosis without myelopathy or radiculopathy, lumbar region; M51.26 Other intervertebral disc displacement, lumbar region; J44.9 Chronic obstructive pulmonary disease, unspecified; K21.9 Gastro-esophageal reflux disease without esophagitis; Z79.891 Long term (current) use of opiate analgesic; Z79.899 Other long term (current) drug therapy; Z87.891 Personal history of nicotine dependence | CPT/HCPCS: G0463 ==

== ENCOUNTER → 2018-06-20 | Outpatient (REF) | payer OTHER ==
[2018-06-20 15:41] LABS: BASO # 0.1 10^3/uL (0.0-0.2); BASO % 0.6 % (0.0-1.0); EOS # 0.1 10^3/uL (0.0-0.50); EOS % 1.6 % (0.0-3.0); HEMATOCRIT 42.6 % (42.0-52.0); HEMOGLOBIN 14.3 g/dl (13.5-17.5); IMMATURE GRANULOCYTE % 0.4 % (0-3.0); LYMPH # 2.1 10^3/uL (1.5-4.5); LYMPH % 26.7 % (24.0-44.0); MEAN CORPUSCULAR HEMOGLOBIN 34.2 pg (27.0-33.0); MEAN CORPUSCULAR HGB CONC 33.6 g/dl (32.0-36.5); MEAN CORPUSCULAR VOLUME 101.9 fl (80.0-96.0); MONO # 0.7 10^3/uL (0.0-0.8); MONO % 8.3 % (0.0-5.0); NEUTROPHILS # 4.9 10^3/uL (1.8-7.7); NEUTROPHILS % 62.4 % (36.0-66.0); PLATELET COUNT, AUTOMATED 237 10^3/uL (150-450); RED BLOOD COUNT 4.18 10^6/uL (4.30-6.10); WHITE BLOOD COUNT 7.9 10^3/uL (4.0-10.0)
[2018-06-20 16:07] LABS: ALBUMIN 3.5 GM/DL (3.2-5.2); ALBUMIN/GLOBULIN RATIO 0.95 (1.00-1.93); ALKALINE PHOSPHATASE 108 U/L (45-117); ALT/SGPT 33 U/L (12-78); ANION GAP 5 MEQ/L (8-16); AST/SGOT 17 U/L (7-37); BILIRUBIN,TOTAL 0.2 MG/DL (0.2-1.0); BLOOD UREA NITROGEN 25 MG/DL (7-18); CALCIUM LEVEL 8.9 MG/DL (8.8-10.2); CARBON DIOXIDE LEVEL 31 MEQ/L (21-32); CHLORIDE LEVEL 105 MEQ/L (98-107); CREATININE FOR GFR 1.04 MG/DL (0.70-1.30); GLOMERULAR FILTRATION RATE > 60.0 (>49); GLUCOSE, FASTING 72 MG/DL (70-100); SODIUM LEVEL 141 MEQ/L (136-145); TOTAL PROTEIN 7.2 GM/DL (6.4-8.2)
[2018-06-20 16:08] LABS: POTASSIUM SERUM 5.3 MEQ/L (3.5-5.1)
== END ==
LOC: M SFHCADAM 14:06
DX: Z01.818 Encounter for other preprocedural examination (principal)

== ENCOUNTER → 2018-08-20 | Outpatient (CLI) | payer OTHER | LOC: M PAIN 08:30 | DX: M47.816 Spondylosis without myelopathy or radiculopathy, lumbar region (principal); M51.26 Other intervertebral disc displacement, lumbar region; G89.29 Other chronic pain; J44.9 Chronic obstructive pulmonary disease, unspecified; K21.9 Gastro-esophageal reflux disease without esophagitis; R73.03 Prediabetes; Z79.82 Long term (current) use of aspirin; Z79.899 Other long term (current) drug therapy; Z96.641 Presence of right artificial hip joint; Z87.891 Personal history of nicotine dependence | CPT/HCPCS: G0463 ==

== ENCOUNTER → 2021-12-06 | Outpatient (CLI) | payer MEDICARE, OTHER ==
[~2021-12-06] MED LIST changes: +ACET-907 PO; +ADVA230A INH; +GASTROGRAFIN SOLUTION 30ML (Q9963) ONE; +ISOVUE-370 76% 100ML VIAL ONE; -ISOVUE-M 300 61% 15ML VIAL (Q9967) As Ordered; -LIDOCAINE 1% SDV INJ 30 ML VIAL As Ordered; +META28.32 PO; +MUCI1TAB18 PO; +PANT40TA29 PO; +VITA100017 PO; -diazePAM 5 MG TAB As Ordered; -methylPREDNISolone SUSP 40 MG/ML (DEPO-medrol) VIAL (J1030) As Ordered; -oxyCODONE 5MG TAB As Ordered
== END ==
LOC: M PLAIMG 10:55
PROVIDERS: ATTEND Surgery
DX: K40.20 Bilateral inguinal hernia, without obstruction or gangrene, not specified as recurrent (principal)
CPT/HCPCS: 72194; Q9963; Q9967

== ENCOUNTER → 2021-12-16 | Outpatient (CLI) | payer MEDICARE, OTHER ==
[~2021-12-16] MED LIST changes: -GASTROGRAFIN SOLUTION 30ML (Q9963) ONE; -ISOVUE-370 76% 100ML VIAL ONE
== END ==
LOC: M LABSMTC 09:35
PROVIDERS: ATTEND Anesthesiology
DX: Z01.812 Encounter for preprocedural laboratory examination (principal); Z20.822 Contact with and (suspected) exposure to COVID-19

== ENCOUNTER 2021-12-21 10:00 | Day surgery (SDC) | payer MEDICARE, OTHER ==
[~2021-12-21] VITALS: Ht 172.7 cm; Wt 99.8 kg
[~2021-12-21 10:00] MED LIST changes: +LIDOCAINE 1% MDV 20ML VIAL SQ PRN; +LR 1,000 ML IV ONE; +ceFAZolin SOD 2 GM in IV 1 EA IV ONE
[2021-12-21 10:52] LABS: HEMATOCRIT 48.1 % (42.0-52.0); HEMOGLOBIN 16.2 g/dl (13.5-17.5); MEAN CORPUSCULAR HEMOGLOBIN 34.5 pg (27.0-33.0); MEAN CORPUSCULAR HGB CONC 33.7 g/dl (32.0-36.5); MEAN CORPUSCULAR VOLUME 102.3 fl (80.0-96.0); PLATELET COUNT, AUTOMATED 222 10^3/uL (150-450); WHITE BLOOD COUNT 9.2 10^3/uL (4.0-10.0)
[2021-12-21 11:18] LABS: ALBUMIN 3.7 GM/DL (3.2-5.2); ALT/SGPT 71 U/L (12-78); BILIRUBIN,TOTAL 0.3 MG/DL (0.2-1.0); BLOOD UREA NITROGEN 17 MG/DL (7-18); CALCIUM LEVEL 9.6 MG/DL (8.8-10.2); CARBON DIOXIDE LEVEL 29 MEQ/L (21-32); CHLORIDE LEVEL 106 MEQ/L (98-107); CREATININE FOR GFR 0.92 MG/DL (0.70-1.30); GLOMERULAR FILTRATION RATE > 60.0 (>49); GLUCOSE, FASTING 120 MG/DL (70-100); POTASSIUM SERUM 4.4 MEQ/L (3.5-5.1); SODIUM LEVEL 140 MEQ/L (136-145); TOTAL PROTEIN 7.9 GM/DL (6.4-8.2)
[2021-12-21] MEDS ORDERED: BUPIVACAINE HCL 0.25% 30ML VIAL As Ordered ONE (11:32)
[2021-12-21] MEDS ORDERED: fentaNYL 250 MCG/5 ML INJECTION As Ordered ONE (12:19)
[2021-12-21] MEDS ORDERED: ROCURONIUM BROMIDE 50 MG/5 ML VIAL As Ordered ONE ×2 (12:19→13:24)
[2021-12-21] MEDS ORDERED: LIDOCAINE 2% 100MG/5ML SDV (FOR ANES.) As Ordered ONE (12:19)
[2021-12-21] MEDS ORDERED: SUGAMMADEX SODIUM 500 MG/5 ML VIAL (BRIDION) As Ordered ONE (12:19)
[2021-12-21] MEDS ORDERED: dexameTHASONE 4 MG/ML 1ML VIAL (J1100 PER 1MG) As Ordered ONE (12:19)
[2021-12-21] MEDS ORDERED: propofoL 200 MG/20 ML VIAL As Ordered ONE (12:19)
[2021-12-21] MEDS ORDERED: MIDAZOLAM INJ 2MG/2ML VIAL (J2250 PER 1MG) As Ordered ONE (12:19)
[2021-12-21] MEDS ORDERED: ACETAMINOPHEN 1000MG 100ML IV BTL (OFIRMEV) (J0131 PER 10MG) As Ordered ONE (12:19)
[2021-12-21] MEDS ORDERED: KETOROLAC 60MG 2ML VIAL As Ordered ONE (12:19)
[2021-12-21] MEDS ORDERED: ONDANSETRON 4MG/2ML VIAL As Ordered ONE (12:19)
[2021-12-21] MEDS ORDERED: PHENYLephrine 500MCG 5ML (100MCG/ML) SYRINGE As Ordered ONE (12:33)
[2021-12-21] MEDS ORDERED: MEPERIDINE INJ 25 MG/ML VIAL (J2175) IV PRN (15:15)
[2021-12-21] MEDS ORDERED: fentaNYL 100 MCG/2 ML INJECTION IV PRN (15:15)
[2021-12-21] MEDS ORDERED: PERCOCET 5MG/325MG TAB PO PRN (15:15)
[2021-12-21] MEDS ORDERED: LR 1,000 ML IV SCH (15:15)
[2021-12-21] MEDS ORDERED: ONDANSETRON 4MG/2ML VIAL IV PRN (15:15)
[2021-12-21] MEDS ORDERED: METOCLOPRAMIDE INJ 10MG/2ML VIAL (J2765 PER 1) IV PRN (15:15)
[2021-12-21] MEDS ORDERED: IBUPROFEN 600MG TAB PO PRN ×2 (15:35→23:00)
[2021-12-21] MEDS ORDERED: NORCO, ANEXSIA 5/325MG TABLET (HYDROcodone/ACETAMINOPHEN) PO PRN (15:35)
[2021-12-21] MEDS ORDERED: ACETAMINOPHEN 500 MG TAB PO PRN (15:35)
[2021-12-21 16:10] VITALS: BP 140/85
== END 2021-12-21 16:17 | disposition home or self-care (01) ==
LOC: M SDC 10:00
PROVIDERS: ATTEND Surgery
DX: K40.20 Bilateral inguinal hernia, without obstruction or gangrene, not specified as recurrent (principal); J44.9 Chronic obstructive pulmonary disease, unspecified; Z79.899 Other long term (current) drug therapy; Z87.891 Personal history of nicotine dependence
CPT/HCPCS: 36415; 49650; 80053; 85027; 93005; C1781; J0131; J0690; J1100; J1885; J2250; J2370; J2405; J3010